=== PATIENT | male | born 1945 | race Caucasian/White ===

== ENCOUNTER 2019-03-31 11:03 | Day surgery (SDC) | payer MEDICARE ==
[~2019-03-31] VITALS: Ht 180.3 cm; Wt 77.3 kg
[2019-03-31] VITALS (11 sets, daily range): BP systolic 95–135; BP diastolic 62–85; PULSE 42–62; TEMP 97.6–98.1
[2019-03-31] MEDS ORDERED: VITAMIN C500 MG PO (11:34)
[2019-03-31] MEDS ORDERED: VITAMIN B COMPL1 SGL PO (11:34)
[2019-03-31] MEDS ORDERED: MULTIPLE VITAMI1 TA5 PO (11:34)
[2019-03-31] MEDS ORDERED: CIALIS5 MG PO (11:35)
[2019-03-31] MEDS ORDERED: FLOMAX 0.40.4 MG/CAP PO (11:35)
[2019-03-31] MEDS ORDERED: ICAPS AREDS SO1 EACH PO (11:36)
--- NOTE | 2019-03-31 20:00 | NUR ---
Patient in bed, has CBI infusing at moderate rate, urine pink in catheter. Has taken oral fluids well and ate supper, IVF capped, site to left wrist without redness or swelling.
--- NOTE | 2019-03-31 21:00 | NUR ---
Patient has approx. 300cc of emesis of undigested food. Feels better after vomiting. Wants Ambien for sleep.
--- NOTE | 2019-04-01 00:30 | NUR ---
Resting with eyes closed, no further emesis, urine pink in catheter tubing.
[2019-04-01 03:44] VITALS: BP 107/66; PULSE 51; TEMP 97.9
--- NOTE | 2019-04-01 04:00 | NUR ---
Rested well, no concerns offered. CBI infusing with pink urine in catheter.
[2019-04-01 07:36] VITALS: BP 112/66; PULSE 57; TEMP 97.9
--- NOTE | 2019-04-01 08:00 | NUR ---
PATIENT AMBULATING THROUGHOUT HALLS INDEPENDENTLY THIS MORNING. PATIENT IS A&OX4. BRADYCARDIA NOTED, OTHERWISE VSS. BOWEL SOUNDS ACTIVE ALL FOUR QUADRANTS. PATIENT TOLERATING DIET WITHOUT ANY COMPLAINTS OF N/V. INDWELLING MUNOZ CATHETER WITH CBI INFUSING AT A SLOW RATE. PINK URINE WITH FEW SMALL CLOTS PRESENT IN MUNOZ BAG. LEFT WRIST TO INT. CALL LIGHT WITHIN REACH. PATIENT DENIES PAIN OR ANY OTHER NEEDS AT THIS TIME.
--- NOTE | 2019-04-01 09:48 | NUR ---
Initial visit; Patient thanked [employer] Supervisor for looking in on him and offering God's blessings.
--- NOTE | 2019-04-01 10:35 | NUR ---
PATIENT'S MUNOZ CATHETER PRIMED WITH 300 MLS OF CBI FLUID AND PULLED. 30 MLS OF STERILE WATER ASPIRATED FROM BALLOON. TIP INTACT. MIRANDA CARE PROVIDED. PATIENT TOLERATED WELL. PATIENT INSTRUCTED ON 6 CUP ROUTINE. 6-CUP ROUTINE STARTED.
--- NOTE | 2019-04-01 11:13 | NUR ---
ZAC met with the patient and patient's , Susan, to discuss discharge plan. The patient lives in [place] with his . He states that him and his just moved here from [place] in June. He reports independence with ADLs and does not have any DME. The patient's PCP is Dr. Bharati Ott and he receives his medications at the [facility]. He reports no difficulties obtaining his meds. The patient does not have advanced directives, but he was interested in obtaining a form for DPOA-HC. ZAC provided. The patient plans to return home with his upon discharge. No additional needs at this time.
--- NOTE | 2019-04-01 11:28 | NUR ---
The patient completed DPOA-HC. He designated his , Susan, and his son, Wilbert. ZAC and the patient's RN, Natty, witnessed the patient's signature. The patient was provided with the original and some copies. A copy was placed in the patient's chart.
[2019-04-01 11:51] VITALS: BP 121/69; PULSE 58; TEMP 98
[2019-04-01 12:21] VITALS: BP 114/72; PULSE 59; TEMP 98.7
[2019-04-01 15:21] VITALS: BP 111/68; PULSE 62; TEMP 98.3
--- NOTE | 2019-04-01 17:07 | NUR ---
PATIENT'S LEFT WRIST INT DISCONTINUED PER PENDING DISCHARGE. TIP INTACT. PATIENT TOLERATED WELL.
--- NOTE | 2019-04-01 18:45 | NUR ---
PATIENT DISCHARGE INSTRUCTIONS REVIEWED. ALL QUESTIONS ANSWERED. PATIENT PERSONAL BELONGINGS GATHERED. PATIENT AMBULATED TO PERSONAL VEHICLE WITH SURGICAL STAFF. PATIENT DISCHARGED.
== END 2019-04-01 18:45 | disposition home or self-care (01) ==
LOC: SDCO 11:03 → SURG 15:18 → SDCO 04-01 18:45
DX: N40.1 Benign prostatic hyperplasia with lower urinary tract symptoms (principal); N13.8 Other obstructive and reflux uropathy; R39.15 Urgency of urination; R35.0 Frequency of micturition; H54.8 Legal blindness, as defined in USA; H35.30 Unspecified macular degeneration; Q87.418 Marfan syndrome with other cardiovascular manifestations; Z87.891 Personal history of nicotine dependence; Z79.899 Other long term (current) drug therapy; Z90.49 Acquired absence of other specified parts of digestive tract; J32.9 Chronic sinusitis, unspecified; Z86.79 Personal history of other diseases of the circulatory system; Z82.49 Family history of ischemic heart disease and other diseases of the circulatory system; G62.9 Polyneuropathy, unspecified
CPT/HCPCS: OP; J0690; J1100; J2250; J2405; J2704; J3010; J7120